=== PATIENT | male | born 1985 | race Two or more races ===

== ENCOUNTER 2018-11-24 14:21 | Emergency (ER) | payer SELFPAY ==
--- NOTE | 2018-11-24 15:24 | ER Document Report ---
ED Medical Screen (RME) - General Chief Complaint: Chest Pain Stated Complaint: ETOH Time Seen by Provider: 11/24/18 15:13 Mode of Arrival: Medic Information source: Patient, Relative Notes: Patient is a 33-year-old male with past medical history of alcoholism presenting to the emergency department with multiple complaints today. Patient is accompanied by his child's mother. The person accompanying him states that he has been drinking heavily today, she states he has been on a drinking binge for the last 3 weeks. She states today he fell over into her yard and passed out. She states that he also vomited blood one time. She states he has had withdrawal seizures in the past. She states his last drink was today around 1 PM drink at least 240 ounce beers. Patient is Mongolian-speaking, he is alert, he is oriented, he is answering questions through the video production intern. He is currently complaining of chest pain. Exam: Heart sounds S1-S2 present with no ectopy noted. Lung sounds clear and equal bilaterally. I have greeted and performed a rapid initial assessment of this patient. A comprehensive ED assessment and evaluation of the patient, analysis of test results and completion of the medical decision making process will be conducted by additional ED providers. I have specifically instructed the patient or family members with the patient to immediately return to any nursing staff should anything change in the patient's condition or with their chief complaint. This medical record was dictated with voice recognizing software. There may be grammatical, syntax errors that are unintended. - Related Data Allergies/Adverse Reactions: No Known Allergies Allergy (Unverified 11/24/18 14:26) Physical Exam - Vital signs Vitals: Temp Pulse Resp BP Pulse Ox 98.7 F 95 16 136/89 H 96 11/24/18 14:51 11/24/18 14:51 11/24/18 14:51 11/24/18 14:51 11/24/18 14:51 Course - Vital Signs Vital signs: Temp Pulse Resp BP Pulse Ox 98.7 F 95 16 136/89 H 96 11/24/18 14:51 11/24/18 14:51 11/24/18 14:51 11/24/18 14:51 11/24/18 14:51
[2018-11-24 15:45] LABS: ABSOLUTE MONOCYTES (AUTO) 0.3 10^3/uL (0.1-1.4); EOSINOPHILS % (AUTO) 0.1 % (0-6); HEMATOCRIT 44.6 % (37.9-51.0); HEMOGLOBIN 15.7 g/dL (13.5-17.0); LYMPHOCYTES % (AUTO) 60.5 % (13-45); MEAN CORPUSCULAR HEMOGLOBIN 32.5 pg (27.0-33.4); MEAN CORPUSCULAR HGB CONC 35.3 g/dL (32.0-36.0); MEAN CORPUSCULAR VOLUME 92 fl (80-97); MONOCYTES % (AUTO) 8.2 % (3-13); PLATELET COUNT 149 10^3/uL (150-450); RED BLOOD COUNT 4.85 10^6/uL (4.35-5.55); RED CELL DISTRIBUTION WIDTH 13.4 % (11.5-14.0); SEGMENTED NEUTROPHILS % (AUTO) 30.2 % (42-78); TOTAL CELLS COUNTED % (AUTO) 100 %; WHITE BLOOD COUNT 3.3 10^3/uL (4.0-10.5)
[2018-11-24 15:59] LABS: ALBUMIN 5.4 g/dL (3.5-5.0); ALKALINE PHOSPHATASE 89 U/L (38-126); ASPARTATE AMINO TRANSFERASE 72 U/L (17-59); BILIRUBIN,DIRECT 0.5 mg/dL (0.0-0.4); BILIRUBIN,TOTAL 1.8 mg/dL (0.2-1.3); BLOOD UREA NITROGEN 5 mg/dL (7-20); CALCIUM 10.2 mg/dL (8.4-10.2); CREATINE KINASE 328 U/L (55-170); GLUCOSE 95 mg/dL (75-110); TOTAL PROTEIN 8.9 g/dL (6.3-8.2)
[2018-11-24 16:04] LABS: ANION GAP 18 (5-19); CARBON DIOXIDE 23 mmol/L (22-30); CHLORIDE 101 mmol/L (98-107)
[2018-11-24 16:08] LABS: ALCOHOL 346 mg/dL (NONE DETECTED)
--- NOTE | 2018-11-24 16:22 | RADIOLOGY REPORT (SQ) ---
EXAM DESCRIPTION: CHEST 2 VIEWS COMPLETED DATE/TIME: 11/24/2018 4:06 pm REASON FOR STUDY: chest pain, vomited blood COMPARISON: None. EXAM PARAMETERS: NUMBER OF VIEWS: two views TECHNIQUE: Digital Frontal and Lateral radiographic views of the chest acquired. RADIATION DOSE: NA LIMITATIONS: none FINDINGS: LUNGS AND PLEURA: No opacities, masses or pneumothorax. No pleural effusion. MEDIASTINUM AND HILAR STRUCTURES: No masses or contour abnormalities. HEART AND VASCULAR STRUCTURES: Heart normal size. No evidence for failure. BONES: No acute findings. HARDWARE: None in the chest. OTHER: No other significant finding. IMPRESSION: NO ACUTE RADIOGRAPHIC FINDING IN THE CHEST. TECHNICAL DOCUMENTATION: JOB ID: [id number] [employer]- All Rights Reserved Reading location - IP/workstation name: [email or web address]
--- NOTE | 2018-11-24 17:21 | ER Document Report ---
ED General - General Chief Complaint: Chest Pain Stated Complaint: ETOH Time Seen by Provider: 11/24/18 15:13 Mode of Arrival: Medic Notes: 33-year-old male with history of alcoholism and withdrawal/seizures presents af ter withdrawal seizure plus chest pain. He has been cutting down on alcohol at the request of his child's mother and has been drinking beer instead of hard liquor. This morning he was very shaky was walking toward her when he fell to the floor and had a seizure for a couple of minutes. He is been drinking beer since then last oral intake of alcohol was beer at 1 PM. Does not feel terminals anymore anxious but did this morning. Complains of sharp chest pain nonpleuritic which is central, head but has resolved as well. - Related Data Allergies/Adverse Reactions: No Known Allergies Allergy (Unverified 11/24/18 14:26) Past Medical History - General Information source: Patient, Relative - Social History Smoking Status: Never Smoker Chew tobacco use (# tins/day): No Frequency of alcohol use: Heavy Drug Abuse: None Family History: None Patient has suicidal ideation: No Patient has homicidal ideation: No Review of Systems - Review of Systems Notes: REVIEW OF SYSTEMS GEN: Denies fever, chills, weight loss ENT: Denies sore throat, nasal discharge, ear pain EYES: Denies blurry vision, eye pain, discharge CV: Pain RESP: Denies cough, shortness of breath, wheezing GI: Denies abdominal pain, nausea, vomiting, diarrhea MSK: Denies joint pain/swelling, edema, SKIN: Denies rash, skin lesions LYMPH: Denies swollen glands/lymph nodes NEURO: Tremulousness seizure PSYCH: Denies depression, suicidal or homicidal ideation PHYSICAL EXAMINATION General: No acute distress, well-nourished Head: Atraumatic, normocephalic ENT: Mouth normal, oropharynx moist, no exudates or tonsillar enlargement Eyes: Conjunctiva normal, pupils equal, lids normal Neck: No JVD, supple, no guarding CVS: Normal rate, regular rhythm, no murmurs Resp: No resp distress, equal and normal breath sounds bilaterally GI: Nondistended, soft, no tenderness to palpation, no rebound or guarding Ext: No deformities, no edema, normal range of motion in upper and lower ext Back: No CVA or midline TTP Skin: No rash, warm Lymphatic: No lymphadeopathy noted Neuro: Awake, alert. Face symmetric. GCS 15. Oriented, no tongue tremor no fasciculations, no peripheral tremor Physical Exam - Vital signs Vitals: Temp Pulse Resp BP Pulse Ox 98.7 F 95 16 136/89 H 96 11/24/18 14:51 11/24/18 14:51 11/24/18 14:51 11/24/18 14:51 11/24/18 14:51 Course - Re-evaluation Re-evalutation: 11/24/18 17:47 Alcoholic presents after withdrawal seizure, now sufficiently intoxicated to have no signs of withdrawal. Chest pain seems atypical and work-up here is negative. The patient does not want to quit yet, has been in rehab before. Will consult social work regarding outpatient resources. Recommended against cutting down her abrupt cessation of alcohol intake. I have discussed with the patient there likely diagnosis, aftercare plan, follow-up plans and my usual and customary return precautions. They verbalized understanding of this. - Vital Signs Vital signs: Temp Pulse Resp BP Pulse Ox 98.7 F 95 18 136/89 H 92 11/24/18 14:51 11/24/18 14:51 11/24/18 17:40 11/24/18 14:51 11/24/18 17:40 - Laboratory Result Diagrams: 11/24/18 13:49 11/24/18 13:49 Laboratory results interpreted by me: 11/24/18 11/24/18 13:49 13:49 WBC 3.3 L Plt Count 149 L Lymph % (Auto) 60.5 H Absolute Neuts (auto) 1.0 L Seg Neutrophils % 30.2 L BUN 5 L Total Bilirubin 1.8 H Direct Bilirubin 0.5 H AST 72 H Creatine Kinase 328 H Total Protein 8.9 H Albumin 5.4 H Serum Alcohol 346 H* - Diagnostic Test Radiology reviewed: Image reviewed, Reports reviewed Discharge - Discharge Clinical Impression: Alcohol abuse Chest pain, unspecified Qualifiers: Chest pain type: other chest pain Qualified Code(s): R07.89 - Other chest pain Condition: Good Disposition: HOME, SELF-CARE Instructions: Acute Alcohol Intoxication ([facility]), Chest Pain of Unclear Cause ([facility])
[2018-11-24 18:14] VITALS: BP 125/89
--- NOTE | 2018-11-24 21:01 | EKG REPORT ---
SEVERITY:- ABNORMAL ECG - SINUS RHYTHM LEFT ANTERIOR FASCICULAR BLOCK CONSIDER RIGHT VENTRICULAR HYPERTROPHY : Confirmed by: Mary Mesa MD 24-Nov-2018 21:01:09
== END 2018-11-24 19:00 | disposition home or self-care (01) ==
LOC: ER 14:21
DX: R07.9 Chest pain, unspecified (principal); F10.239 Alcohol dependence with withdrawal, unspecified; F10.229 Alcohol dependence with intoxication, unspecified; G40.89 Other seizures
CPT/HCPCS: 36415; 71046; 80053; 80307; 82550; 84484; 85025; 86850; 86900; 86901; 93005; 93010; 99285